=== PATIENT | female | born 1960 | race Caucasian/White ===

== ENCOUNTER → 2022-01-09 | Outpatient (CLI) | payer BC ==
[2022-01-09 14:09] LABS: BLOOD UREA NITROGEN 16 MG/DL (7-18); CALCIUM LEVEL 10.3 MG/DL (8.8-10.2); CARBON DIOXIDE LEVEL 28 MEQ/L (21-32); CHLORIDE LEVEL 108 MEQ/L (98-107); CREATININE FOR GFR 0.79 MG/DL (0.55-1.30); GLOMERULAR FILTRATION RATE > 60.0 (>45); GLUCOSE, FASTING 379 MG/DL (70-100); POTASSIUM SERUM 4.1 MEQ/L (3.5-5.1); SODIUM LEVEL 141 MEQ/L (136-145)
== END ==
LOC: M LAB 11:55
PROVIDERS: ATTEND Family Medicine Addiction Medicine
DX: I10 Essential (primary) hypertension (principal)

== ENCOUNTER → 2022-05-29 | Outpatient (CLI) | payer BC | LOC: M WUC 10:46 | PROVIDERS: ATTEND Pediatrics | DX: S99.921A Unspecified injury of right foot, initial encounter (principal); X58.XXXA Exposure to other specified factors, initial encounter; Y92.9 Unspecified place or not applicable; Y93.9 Activity, unspecified; Y99.9 Unspecified external cause status ==

== ENCOUNTER → 2022-06-17 | Outpatient (CLI) | payer BC | LOC: M SOG 16:22 | PROVIDERS: ATTEND Orthopaedic Surgery | DX: M25.761 Osteophyte, right knee (principal) ==

== ENCOUNTER → 2022-08-27 | Outpatient (REF) | payer BC ==
[2022-08-27 19:01] LABS: HEMATOCRIT 44.9 % (36.0-47.0); HEMOGLOBIN 14.8 g/dl (12.0-15.5); MEAN CORPUSCULAR HEMOGLOBIN 29.1 pg (27.0-33.0); MEAN CORPUSCULAR VOLUME 88.4 fl (80.0-96.0); PLATELET COUNT, AUTOMATED 242 10^3/uL (150-450); RED BLOOD COUNT 5.08 10^6/uL (4.00-5.40)
[2022-08-27 19:31] LABS: CARBON DIOXIDE LEVEL 25 MMOL/L (20-31); CHLORIDE LEVEL 101 MMOL/L (98-107); SODIUM LEVEL 139 MMOL/L (136-145)
[2022-08-27 19:36] LABS: THYROID STIMULATING HORMONE 0.208 uIU/ML (0.55-4.78)
[2022-08-27 19:37] LABS: BLOOD UREA NITROGEN 16 MG/DL (9-23); CALCIUM LEVEL 10.1 MG/DL (8.3-10.6); GLUCOSE, FASTING 287 MG/DL (74-106)
[2022-08-27 19:39] LABS: CREATININE FOR GFR 0.49 MG/DL (0.55-1.30); GLOMERULAR FILTRATION RATE > 60.0 (>45); POTASSIUM SERUM 4.4 MMOL/L (3.5-5.1)
[2022-08-27 20:02] LABS: HEMOGLOBIN A1c 9.5 % (4.0-6.0)
== END ==
LOC: M LAB REF 17:22
PROVIDERS: ATTEND Physician Assistant
DX: E11.65 Type 2 diabetes mellitus with hyperglycemia (principal); E03.9 Hypothyroidism, unspecified

== ENCOUNTER → 2022-10-09 | Outpatient (CLI) | payer BC | LOC: M WHC 15:21 | PROVIDERS: ATTEND Physician Assistant | DX: Z12.31 Encounter for screening mammogram for malignant neoplasm of breast (principal) ==

== ENCOUNTER → 2023-07-08 | Outpatient (REF) | payer MEDICARE, BC ==
[2023-07-09 12:42] LABS: CREATININE, URINE 42.9 MG/DL; MAU/CREAT RATIO 6.9 MCG/MG (0.0-30.0)
== END ==
LOC: M LAB REF 11:35
PROVIDERS: ATTEND Pediatrics
DX: I10 Essential (primary) hypertension (principal)

== ENCOUNTER → 2023-07-09 | Outpatient (REF) | payer MEDICARE, BC ==
[2023-07-09 12:45] LABS: CHOLESTEROL RISK RATIO 2.05 (<5); HDL CHOLESTEROL 53.9 MG/DL (>40); LDL CHOLESTEROL 44.3 MG/DL (<100); NON-HDL-C 57.1 MG/DL
== END ==
LOC: M LAB REF 11:33
PROVIDERS: ATTEND Pediatrics
DX: I10 Essential (primary) hypertension (principal); Z79.899 Other long term (current) drug therapy; E78.5 Hyperlipidemia, unspecified

== ENCOUNTER → 2023-10-17 | Outpatient (REF) | payer MEDICARE, BC | LOC: M LAB REF 17:44 | PROVIDERS: ATTEND Physician Assistant | DX: R59.0 Localized enlarged lymph nodes (principal) ==

== ENCOUNTER → 2023-10-23 | Outpatient (CLI) | payer MEDICARE, BC | LOC: M WHC 12:47 | PROVIDERS: ATTEND Pediatrics | DX: Z12.31 Encounter for screening mammogram for malignant neoplasm of breast (principal); Z13.820 Encounter for screening for osteoporosis ==

== ENCOUNTER → 2023-11-20 | Outpatient (CLI) | payer MEDICARE, BC | LOC: M SLEEP 20:00 | PROVIDERS: ATTEND Physician Assistant | DX: G47.33 Obstructive sleep apnea (adult) (pediatric) (principal) ==

== ENCOUNTER 2023-12-21 15:06 | Emergency (ER) | payer MEDICARE, BC ==
[~2023-12-21] VITALS: Ht 160 cm; Wt 84.4 kg
[2023-12-21 15:07] VITALS: BP 133/73; TEMP 97.1; O2SAT 98
[2023-12-21] MEDS ORDERED: DULA3PEN (15:18)
[2023-12-21] MEDS ORDERED: FLUTISP (15:18)
[2023-12-21] MEDS ORDERED: METF-838 (15:18)
[2023-12-21] MEDS ORDERED: PREDOPD (15:18)
[2023-12-21] MEDS ORDERED: HYDR-3490 (15:18)
[2023-12-21] MEDS ORDERED: ASPI-226 (15:18)
[2023-12-21] MEDS ORDERED: LOSA100T46 (15:18)
[2023-12-21] MEDS ORDERED: METO1TAB7 (15:18)
[2023-12-21] MEDS ORDERED: ATOR1TAB21 (15:18)
[2023-12-21] MEDS ORDERED: AMLO1TAB25 (15:18)
[2023-12-21] MEDS ORDERED: SYNT150T (15:18)
[2023-12-21] MEDS ORDERED: CEPH500C PO (15:59)
[2023-12-21] MEDS: CEPHALEXIN 500 MG CAP PO ONE (16:00)
== END 2023-12-21 16:16 | disposition home or self-care (01) ==
LOC: M ED 15:06
DX: T81.49XA Infection following a procedure, other surgical site, initial encounter (principal); L03.113 Cellulitis of right upper limb; Z79.82 Long term (current) use of aspirin; Z79.02 Long term (current) use of antithrombotics/antiplatelets; Z79.811 Long term (current) use of aromatase inhibitors; Z79.4 Long term (current) use of insulin; Z79.899 Other long term (current) drug therapy

== ENCOUNTER 2023-12-22 02:26 | Emergency (ER) | payer MEDICARE, BC ==
[~2023-12-22] VITALS: Ht 162.6 cm; Wt 84.6 kg
[~2023-12-22 02:26] MED LIST: AMLO1TAB25; ASPI-226; ATOR1TAB21; CEPH500C PO; DULA3PEN; FLUTISP; HYDR-3490; LOSA100T46; METF-838; METO1TAB7; PREDOPD; SYNT150T
[2023-12-22 06:11] VITALS: TEMP 97.5
[2023-12-22 06:18] LABS: BASO # 0.1 10^3/uL (0.0-0.2); BASO % 0.5 % (0.0-1.0); EOS # 0.4 10^3/uL (0.0-0.5); EOS % 3.7 % (0.0-3.0); HEMATOCRIT 44.5 % (36.0-47.0); HEMOGLOBIN 14.7 g/dl (12.0-15.5); LYMPH # 2.1 10^3/uL (1.5-5.0); LYMPH % 17.9 % (24.0-44.0); MEAN CORPUSCULAR HEMOGLOBIN 29.8 pg (27.0-33.0); MEAN CORPUSCULAR VOLUME 90.1 fl (80.0-96.0); MONO # 0.8 10^3/uL (0.0-0.8); MONO % 6.6 % (2.0-8.0); NEUTROPHILS # 8.2 10^3/uL (1.5-8.5); NEUTROPHILS % 70.9 % (36.0-66.0); PLATELET COUNT, AUTOMATED 231 10^3/uL (150-450); RED BLOOD COUNT 4.94 10^6/uL (4.00-5.40); WHITE BLOOD COUNT 11.6 10^3/uL (4.0-10.0)
[2023-12-22 06:48] LABS: AMYLASE 49 U/L (30-118)
[2023-12-22 06:49] LABS: ALKALINE PHOSPHATASE 123 U/L (46-116); ALT/SGPT 27 U/L (7.0-40); AST/SGOT 12 U/L (<34); BILIRUBIN,DIRECT 0.2 MG/DL (<0.4); BILIRUBIN,TOTAL 0.5 MG/DL (0.3-1.2); BLOOD UREA NITROGEN 20 MG/DL (9-23); CARBON DIOXIDE LEVEL 29 MMOL/L (20-31); CHLORIDE LEVEL 106 MMOL/L (98-107); CREATININE FOR GFR 0.57 MG/DL (0.55-1.30); GLOMERULAR FILTRATION RATE > 60.0 (>45); GLUCOSE, FASTING 152 MG/DL (74-106); SODIUM LEVEL 140 MMOL/L (136-145); TOTAL PROTEIN 6.4 G/DL (5.7-8.2)
[2023-12-22 06:55] LABS: PROCALCITONIN <0.04 ng/ml
[2023-12-22] MEDS: ceFAZolin SOD 1 GM in D5W MINI-BAG PLUS 50 ML IV ONE (10:06)
[2023-12-22] MEDS: KETOROLAC 30 MG/ML 1ML VIAL IV ONE (10:28)
[2023-12-22 10:30] VITALS: BP 133/82
[2023-12-22 10:31] VITALS: O2SAT 94
== END 2023-12-22 10:48 | disposition home or self-care (01) ==
LOC: M ED 02:26
DX: T81.49XA Infection following a procedure, other surgical site, initial encounter (principal); L03.113 Cellulitis of right upper limb; E11.9 Type 2 diabetes mellitus without complications; E03.9 Hypothyroidism, unspecified; Z79.82 Long term (current) use of aspirin; Z79.02 Long term (current) use of antithrombotics/antiplatelets; Z79.811 Long term (current) use of aromatase inhibitors; Z79.899 Other long term (current) drug therapy
CPT/HCPCS: 80048; 80076; 82150; 83605; 84145; 85025; 86140; 87040; 96374; 96375; 99284; J0690; J1885

== ENCOUNTER 2024-02-27 20:26 | Emergency (ER) | payer MEDICARE, BC ==
[~2024-02-27] VITALS: Ht 160 cm; Wt 81.4 kg
[2024-02-27] MEDS ORDERED: TRAZ-257 PO (21:06)
[2024-02-27] MEDS ORDERED: LISD30CA PO (21:06)
[2024-02-27] MEDS ORDERED: SYNT137T7 PO (21:06)
[2024-02-27] MEDS ORDERED: VYVA30CA4 PO (21:06)
[2024-02-27 21:13] LABS: BASO # 0.1 10^3/uL (0.0-0.2); BASO % 0.7 % (0.0-1.0); EOS # 0.6 10^3/uL (0.0-0.5); EOS % 8.3 % (0.0-3.0); HEMATOCRIT 39.7 % (36.0-47.0); HEMOGLOBIN 13.7 g/dl (12.0-15.5); LYMPH # 1.4 10^3/uL (1.5-5.0); LYMPH % 20.3 % (24.0-44.0); MEAN CORPUSCULAR HEMOGLOBIN 29.9 pg (27.0-33.0); MEAN CORPUSCULAR HGB CONC 34.5 g/dl (32.0-36.5); MEAN CORPUSCULAR VOLUME 86.7 fl (80.0-96.0); MONO # 0.4 10^3/uL (0.0-0.8); MONO % 5.8 % (2.0-8.0); NEUTROPHILS # 4.6 10^3/uL (1.5-8.5); NEUTROPHILS % 64.5 % (36.0-66.0); PLATELET COUNT, AUTOMATED 218 10^3/uL (150-450); RED BLOOD COUNT 4.58 10^6/uL (4.00-5.40); WHITE BLOOD COUNT 7.1 10^3/uL (4.0-10.0)
[2024-02-27 21:41] LABS: LIPASE 45 U/L (12-53)
[2024-02-27 21:43] LABS: BLOOD UREA NITROGEN 21 MG/DL (9-23); CARBON DIOXIDE LEVEL 25 MMOL/L (20-31); CHLORIDE LEVEL 110 MMOL/L (98-107); CREATININE FOR GFR 0.68 MG/DL (0.55-1.30); GLOMERULAR FILTRATION RATE > 60.0 (>45); GLUCOSE, FASTING 170 MG/DL (74-106); POTASSIUM SERUM 3.5 MMOL/L (3.5-5.1); SODIUM LEVEL 143 MMOL/L (136-145)
[2024-02-27 22:17] LABS: CK-MB VALUE MASS 1.9 NG/ML (<3.6)
[2024-02-27 22:32] LABS: CPK CREATINE PHOSPHOKINASE 91 U/L (34-145); MB/CK RELATIVE INDEX 2.08 (< OR =4)
[2024-02-27 22:38] LABS: HEMOGLOBIN A1c 6.1 % (4.0-6.0)
[2024-02-28 00:47] VITALS: BP 116/63; TEMP 98.8; O2SAT 98
== END 2024-02-28 00:55 | disposition home or self-care (01) ==
LOC: M ED 20:26
DX: E11.649 Type 2 diabetes mellitus with hypoglycemia without coma (principal); I10 Essential (primary) hypertension; E78.5 Hyperlipidemia, unspecified; F39 Unspecified mood [affective] disorder; Z85.828 Personal history of other malignant neoplasm of skin; Z79.82 Long term (current) use of aspirin; Z79.4 Long term (current) use of insulin; Z79.899 Other long term (current) drug therapy; Z88.2 Allergy status to sulfonamides

== ENCOUNTER → 2024-04-02 | Outpatient (CLI) | payer MEDICARE, BC ==
[~2024-04-02] MED LIST changes: +LISD30CA PO; +SYNT137T7 PO; +TRAZ-257 PO; +VYVA30CA4 PO
[2024-04-02 15:26] LABS: BASO # 0.1 10^3/uL (0.0-0.2); BASO % 0.7 % (0.0-1.0); EOS # 0.4 10^3/uL (0.0-0.5); EOS % 5.5 % (0.0-3.0); HEMATOCRIT 42.8 % (36.0-47.0); HEMOGLOBIN 14.1 g/dl (12.0-15.5); LYMPH # 1.1 10^3/uL (1.5-5.0); LYMPH % 16.2 % (24.0-44.0); MEAN CORPUSCULAR HEMOGLOBIN 29.5 pg (27.0-33.0); MEAN CORPUSCULAR HGB CONC 32.9 g/dl (32.0-36.5); MEAN CORPUSCULAR VOLUME 89.5 fl (80.0-96.0); MONO # 0.4 10^3/uL (0.0-0.8); MONO % 6.1 % (2.0-8.0); NEUTROPHILS # 4.8 10^3/uL (1.5-8.5); NEUTROPHILS % 71.1 % (36.0-66.0); PLATELET COUNT, AUTOMATED 191 10^3/uL (150-450); RED BLOOD COUNT 4.78 10^6/uL (4.00-5.40); WHITE BLOOD COUNT 6.8 10^3/uL (4.0-10.0)
[2024-04-02 15:53] LABS: ALBUMIN 3.6 G/DL (3.2-5.2); ALKALINE PHOSPHATASE 100 U/L (46-116); ALT/SGPT 30 U/L (7.0-40); AST/SGOT 9 U/L (<34); BILIRUBIN,TOTAL 0.7 MG/DL (0.3-1.2); BLOOD UREA NITROGEN 15 MG/DL (9-23); CALCIUM LEVEL 9.3 MG/DL (8.3-10.6); CARBON DIOXIDE LEVEL 28 MMOL/L (20-31); CHLORIDE LEVEL 109 MMOL/L (98-107); CHOLESTEROL LEVEL 122 MG/DL (<200); CHOLESTEROL RISK RATIO 2.64 (<5); CREATININE FOR GFR 0.66 MG/DL (0.55-1.30); GLOMERULAR FILTRATION RATE > 60.0 (>45); GLUCOSE, FASTING 128 MG/DL (74-106); HDL CHOLESTEROL 46.2 MG/DL (>40); LDL CHOLESTEROL 64.8 MG/DL (<100); NON-HDL-C 75.8 MG/DL; POTASSIUM SERUM 4.3 MMOL/L (3.5-5.1); SODIUM LEVEL 141 MMOL/L (136-145); TOTAL PROTEIN 5.7 G/DL (5.7-8.2); TRIGLYCERIDES LEVEL 55 MG/DL (<150)
[2024-04-02 15:54] LABS: THYROGLOBULIN ANTIBODY < 15.0 U/ML (<60.0); THYROID PEROXIDASE ANTIBODY 35 U/ML (<60.0)
[2024-04-05 14:08] LABS: VITAMIN D 1,25 DIHYDROXY 45.2 pg/mL (24.8-81.5)
[2024-04-07 17:23] LABS: THYROID STIMULATING IMMUNOGLOB < 89 % baseline (<140)
== END ==
LOC: M PLALAB 13:38
PROVIDERS: ATTEND Student in an Organized Health Care Education/Training Program
DX: E11.9 Type 2 diabetes mellitus without complications (principal); E03.9 Hypothyroidism, unspecified; Z76.89 Persons encountering health services in other specified circumstances